=== PATIENT | male | born 1950 | race Caucasian/White ===

== ENCOUNTER 2017-11-28 07:14 | Emergency (ER) | payer OTHER, MEDICARE ==
[~2017-11-28] VITALS: Ht 177.8 cm; Wt 131.5 kg
--- NOTE | 2017-11-28 07:15 | NUR ---
AAOX3, BIBRA FROM HOME C/O L KNEE PAIN S/P SLIP AND FALL, - HEAD TRAUMA, L FINGER ABRASION. RR IS EVEN AND UNLABORED WITH NAD NOTED. SKIN IS WARM AND DRY. AWAITING MD FOR EVAL.
[2017-11-28 07:18] VITALS: BP 173/83
--- NOTE | 2017-11-28 07:26 | NUR ---
DR MANTILLA AT BEDSIDE FOR EVAL.
[2017-11-28] MEDS ORDERED: IBUPROFEN 600 MG TABLET PO ONE (07:31)
[2017-11-28] MEDS: IBUPROFEN 600 MG TABLET PO ONE (07:34)
--- NOTE | 2017-11-28 07:38 | NUR ---
RADIOLOGY AT BEDSIDE FOR L KNEE XRAY.
[2017-11-28] MEDS ORDERED: HYDROCODONE/APAP 5/325MG 1 EACH TABLET ONE (08:09)
[2017-11-28] MEDS: HYDROCODONE/APAP 5/325MG 1 EACH TABLET PO ONE (08:11)
[2017-11-28] MEDS ORDERED: TDAP [DIPH/PERTUSSIS/TET] 0.5 ML VIAL IM ONE (08:19)
[2017-11-28] MEDS: TDAP [DIPH/PERTUSSIS/TET] 0.5 ML VIAL IM ONE (08:24)
--- NOTE | 2017-11-28 08:26 | NUR ---
Patient discharged to home in stable condition. Written and verbal after care instructions given. Patient verbalizes understanding of instruction.
== END 2017-11-28 08:29 | disposition home or self-care (01) ==
LOC: ER 07:18
DX: S83.8X2A Sprain of other specified parts of left knee, initial encounter (principal); S60.413A Abrasion of left middle finger, initial encounter; S60.415A Abrasion of left ring finger, initial encounter; I10 Essential (primary) hypertension; W01.0XXA Fall on same level from slipping, tripping and stumbling without subsequent striking against object, initial encounter; Y93.01 Activity, walking, marching and hiking; Y92.038 Other place in apartment as the place of occurrence of the external cause; Y99.8 Other external cause status
CPT/HCPCS: 73564-TC; 90715; A4606; A6403; Z7610